=== PATIENT | female | born 1995 | race Two or more races ===

== ENCOUNTER → 2024-10-14 | Outpatient (CLI) | payer BC, SELFPAY ==
--- NOTE | 2024-10-14 09:30 | XR_ITS ---
Examination: MRI brain without intravenous contrast. Date and time of exam: October 14, 2024 0947 hours INDICATIONS: Headaches head pressure beginning 10 years ago Technique: Multiple axial and sagittal images of the brain obtained. Siemens high-resolution 1.5 Kelley short bore scanners utilized. Sagittal sections, T1-weighted, TR 500, TE 14, are performed. Axial sections proton-density and T2-weighted have been obtained. Inversion recovery axial images, TR 9, 260, TE 111, TI 2500. Diffusion weighted images, axial sections, TR 4800, TE 128, B value 1000 Axial sections, ADC map, TR 4800, TE 128 Findings: Enlargement of the sella turcica is not present. The optic chiasm and infundibular are not remarkable. Prepontine and interpeduncular cisterns are not enlarged. There is no localized enlargement of the medulla or cintia. Fourth ventricle and cerebellar tonsils appear normal in position. No subacute area of hemorrhage density is seen. Mass in the cerebellopontine angle region is not evident. Globes symmetrical. Orbital musculature including medial lateral rectus muscles do not exhibit abnormality. Diffusion-weighted images demonstrate no focus of restricted diffusion. Increased white matter signal suspicious for punctate focus increased signal in the right temporal white matter FLAIR image 9 Mass effect upon the ventricular system is not identified. Impression: Negative for acute hemorrhage mass effect or midline shift. Suspicious for single punctate focus of increased signal in the right temporal white matter, FLAIR image 9, clinical correlation as to early demyelinating disease is recommended
--- NOTE | 2024-10-14 09:30 | XR_ITS ---
EXAMINATION: MR venogram without contrast TECHNIQUE: MR venous angiographic images without intravenous contrast Date and time: October 14, 2024 10 0 6:00 AM INDICATIONS: Dizziness had pressure beginning 10 years ago. FINDINGS: Technique is limited Sagittal sinus and draining frontal parietal veins noted Straight sinus and internal cerebral veins identified Transverse sinuses and jugular veins also fill No luminal thrombus depicted IMPRESSION: This is a limited study partly secondary to patient motion No venous thrombus is noted
== END | disposition home or self-care (01) ==
LOC: SMRI 09:00
PROVIDERS: Referring Provider Psychiatry & Neurology Neurology; Visit Provider Psychiatry & Neurology Neurology
DX: R51.9 Headache, unspecified (principal)
CPT/HCPCS: 70546; 70548; 70549; 70551

== ENCOUNTER 2025-04-10 14:21 | Outpatient (AMB) | payer MEDICAID, SELFPAY ==
--- NOTE | 2025-04-10 14:29 | AMB.OBINITIA ---
Vital Signs 04/10/25 14:41 Height 1.68 m Height Method Stated Weight 72.178 kg Weight Measurement Method Standing Scale BMI 25.7 BP 123/83 Blood Pressure Source Automatic Cuff Blood Pressure Location Left Upper Arm Position Sitting Respiration 16 Pulse 78 Pulse Source Monitor Temp 97.2 F Temp Source Oral Pulse Oximetry (%) 98 Oxygen Delivery Method Room Air Allergies/Home Meds Allergies & Medications Allergies NKA* Allergy (Uncoded 04/10/25 14:42) Medication Reconciliation PNV CMB#95/FERROUS FUMARATE/FA ( MULTIVITAMINS TABLET) 1 tab PO DAILY ##0 03/30/13 [History Confirmed 04/10/25] Intake Visit Data Collection New Patient or Established: Established Patient (seen at [facility] within 3 years) Reason for Visit:: TRANSFER INITIAL CARE Seen by Clinical Staff ONLY (RN/MA): No Supervisor Blueprinting And Photocopy Required: No Do You Feel Safe at Home: Yes Authorities Contacted: N/A PCP or OBGYN visit in last 3 months: Yes Hx Now: Yes Are you currently on any form of Control: No Last menstrual period: 08/22/24 Pain Present Currently: No Pain Scale Used: Stover-Adams/Numerical Pain scale:: 0 Smoking Status Smoking Status: Never smoker Immunizations Flu Vaccine in the Last 12 Months: No Flu Vaccine Exclusion Criteria: Refused by Patient Questionnaires Covid-19 Vaccine Questionnaire Has patient been vacinated for Covid-19 Have you been vacinated for Covid-19: No PHQ-9 PHQ-2 Over the last 2 weeks, how often have you been bothered by any of the following problems? 1. Little interest or pleasure in doing things: not at all 2. Feeling down, depressed, or hopeless: not at all Total score: 0 PHQ-9 3. Trouble falling or staying asleep, or sleeping too much: Not at all 4. Feeling tired or having little energy: Not at all 5. Poor appetite or overeating: Not at all 6. Feeling bad about yourself - or that you are a failure or have let yourself or your family down: Not at all 7. Trouble concentrating on things, such as reading the newspaper or watching television: Not at all 8. Moving or speaking so slowly that other people could have noticed? - Or the opposite - being so fidgety or restless that you have been moving around a lot more than usual: not at all 9. Thoughts that you would be better off or of hurting yourself in some way: Not at all Total score: 0 Source: Developed by Drs. Jacob Garcia, Aline Holloway, Rui Kaufman and colleagues, with an educational slade from [employer]. Depression screen completed yes Social History Living Situation History Marital Status: Lives With: Family Housing: House Tobacco History Smoking Status: Never smoker Second Hand Smoke Exposure: No Alcohol History Alcohol Intake: Never Domestic Abuse History Do You Feel Safe at Home: Yes OB Initial Visit Menstrual History Menstrual reliability: definite Flow: normal Menstrual regularity: regular Monthly: Yes Age at menarche: 10 On control pills at conception: No Associated symptoms (LMP): Denies amenorrhea, nausea, vomiting, fatigue, breast tenderness, urinary frequency, irritability, bloating or other OB History : 3 Para: 2 # of Living Children: 2 Delivery History 1st : Child's name: CONNIE date: 04/28/13 sex: female Gestational age at delivery (weeks): 40 Delivery type: vaginal Delivery complications: NONE History of depression before or after : No 2nd : Child's name: NOY date: 11/16/16 sex: female Gestational age at delivery (weeks): 41 Delivery type: Delivery complications: NONE History of depression before or after : No Infection History & Risk Evaluation Patient or partner has history of Genital Herpes: Yes Genetic Screening & History Genetic Screening/Teratology Counseling - Includes patient, baby's father, or anyone in either family with: 1. Patient's age 35 years or older as of estimated date of delivery: No 2. Thalassemia (Telugu, Ethiopian, Mediterranean, or Background); MCV less than 80: No 3. Neural Tube Defect (Meningomyelocele, Spina Bifida, or Anencephaly): No 4. Congenital Heart Defect: No 5. Down Syndrome: No 6. Nick-Sachs (Ashkenazi Buddhist, Cajun, [place] Cook Islander): No 7. Jailyn Disease (Ashkenazi Buddhist): No 8. Familial Dysautonomia (Ashkenazi Buddhist): No 9. Sickle Cell Disease or Trait (): No 10. Hemophilia or other blood disorders: No 11. Muscular Dystrophy: No 12. Cystic Fibrosis: No 13. Dauphin's Chorea: No 14. Mental Retardation/Autism: No 15. Other inherited genetic or chromosomal disorder: No 16. Maternal Metabolic Disorder (EG,TYPE 1 Diabetes, PKU): No 17. Patient or baby's father had a child with defects not listed above: No 18. Recurrent loss or a stillbirth: No 19. Medications (including supplements, vitamins, herbs or otc drugs)/illicit/recreational drugs/alcohol since last menstrual period: No 20. Any other: No Infection History 1. Live with someone with TB or exposed to TB: No 2. Rash or viral illness since last menstrual period: No 3. Hepatitis B,C: No Other (see comments) Source: [employer] Review of Systems Constitutional Constitutional: Denies fatigue Gastrointestinal Gastrointestinal: Denies bloating, Denies nausea and Denies vomiting Genitourinary Genitourinary: Denies amenorrhea and Denies urinary frequency Psychiatric Psychiatric: Denies irritability Endocrine Endocrine: Denies fatigue Office Procedures [facility] LOC & Office Proc's Nursing/Assessment Patient Status: Established Patient OB Clinic Nursing Assessment: Medication Reconciliation, Update PMH in EMR and Vital Signs OB Clinic Coordination of Care: Complex Care and Chronic Disease 1-5, Consent,records obtained, informed consent, Education Simp Pt/Fam, 1 Ins Authorization, Lab and Imaging orders, Results/Orders obtained and Staff clarify orders Special Needs: Heart tones Established Patient Charge Established Patient Point Assignment: 150 Established Patient Point Charge: EP Level 4 (120-155) Assessment & Plan Diagnosis / Problem List (1) Maternal care for low transverse scar from previous delivery: Status: Acute (2) Supervision of high risk , unspecified, first trimester: Status: Acute
[2025-04-10 14:41] VITALS: BP 123/83; PULSE 78; RESP 16; TEMP 36.2; O2SAT 98; BMI 25.7
== END 2025-04-10 15:00 | disposition home or self-care (01) ==
LOC: HODSOBC 14:21
PROVIDERS: Supervising Provider Obstetrics & Gynecology; Visit Provider Obstetrics & Gynecology
DX: O09.291 Supervision of pregnancy with other poor reproductive or obstetric history, first trimester (principal); O34.211 Maternal care for low transverse scar from previous cesarean delivery; Z3A.00 Weeks of gestation of pregnancy not specified
CPT/HCPCS: 99214; G0463

== ENCOUNTER 2025-04-27 11:00 | Outpatient (AMB) | payer MEDICAID, SELFPAY ==
[2025-04-27 11:14] VITALS: BP 126/86; PULSE 90; RESP 18; TEMP 36.4; O2SAT 97; BMI 25.6
--- NOTE | 2025-04-27 11:14 | OBCLNT_ITS ---
Vital Signs 04/27/25 11:14 Height 1.68 m Height Method Stated Weight 72.291 kg Weight Measurement Method Standing Scale BMI 25.6 BP 126/86 H Blood Pressure Source Automatic Cuff Blood Pressure Location Right Upper Arm Position Sitting Respiration 18 Pulse 90 Pulse Source Monitor Temp 97.6 F Temp Source Temporal Artery Scan Pulse Oximetry (%) 97 Oxygen Delivery Method Room Air Allergies/Home Meds Allergies & Medications Allergies NKA* Allergy (Uncoded 04/27/25 11:15) Medication Reconciliation PNV CMB#95/FERROUS FUMARATE/FA ( MULTIVITAMINS TABLET) 1 tab PO DAILY ##0 03/30/13 [History Confirmed 04/27/25] Immunizations Immunizations Flu Vaccine in the Last 12 Months: No Flu Vaccine Exclusion Criteria: No Exclusion Criteria Care OB Visit Log OB Flowsheet Initial Weight: Not Recorded Date -?-?-?-?-?-?-?-?-?-?-?-?- EGA Weight BP Alb Glu CTX Pres Fundal ht FHR Mov Dilation Station Effacement Hx Notes Visit Note 04/10/25 -?-?-?-?-?-?-?-?-?-?-?-?- 33w 0d 72.178 kg 123/83 occasional cephalic 34 145 active - Jeni Louis is a 29-year-old female, 3 para 2, presenting for transfer of care at 33 weeks gestation. - She has a history of one previous C-se ction and is currently with a male fetus. - Patient has a complex left ovarian mas s, possibly dermoid, measuring 7.1 by 4.7 by 6.5 centimeters. - She reports that everything is going w ell with her . - Patient was previously under the care of [facility] and is now transferring care. - She has had M ultrasounds showing ap propriate growth with no structural abnormalities noted, though anatomy was limited secondary to maternal body habitus. - Patient denies any current concerns or significant issues. - She has not yet decided on a name for the baby. - Patient confirms she has vitamins and does not need any refills. - Schedule repeat at 39 weeks - Remove ovarian dermoid cyst (7.1 x 4.7 x 6.5 cm) during and send to pathology - Follow-up appointment in 2 weeks - Perform Group B Strep vaginal culture at next visit - Weekly appointments after the 2-week f ollow-up 04/27/25 -?-?-?-?-?-?-?-?-?-?-?-?- 35w 3d 72.291 kg 126/86 occasional cephalic 36 140 active - Jeni Louis is a 3 para 2 female at 35 weeks and 3 days gestation presenting for routine visit with history of two previous sections and scheduled repeat section at 39 weeks. - She reports pain or pressure in the up per abdomen/rib area. - Pain occurs when sitting - Attributes discomfort to baby pressi ng against ribs as baby fills up available space - She reports the baby is always active with normal movement. - She denies cramping, bleeding, or othe r concerning symptoms. - Previous ovarian cyst is not currently acting up. - Scheduled repeat section on May 22 at 7:30 AM with check-in at 5:30 AM - Planned removal of left ovarian cyst d uring delivery, with specimen to be sent to pathology for analysis - Group B Streptococcus culture performe d - Pre-operative appointment to be schedu led upon physician's return from leave - Patient instructed to present to hospi avery if experiencing contractions, leaking, or other concerning symptoms - Recommend sleeping on side to alleviat e rib pressure from positioning JOSTIN Calculator Estimated Delivery Date Method Current WG Current Estimate 05/29/25 LMP (Certain) 35w 3d Other Estimates 05/26/25 Ultrasound #1 35w 6d Office Procedures [facility] LOC & Office Proc's Nursing/Assessment Patient Status: Established Patient OB Clinic Nursing Assessment: Medication Reconciliation, Update PMH in EMR and Vital Signs OB Clinic Coordination of Care: Complex Care and Chronic Disease 1-5, Education Complex Pt/Fam, Consent,records obtained, informed consent, Lab and Imaging orders, Results/Orders obtained and Staff clarify orders Special Needs: Heart tones Miscellaneous Interventions: Culture Specimen Collection Established Patient Charge Established Patient Point Assignment: 155 Established Patient Point Charge: EP Level 4 (120-155) Assessment & Plan Diagnosis / Problem List (1) Maternal care for low transverse scar from previous delivery: Status: Acute Plan Problem List - at 35 weeks 3 days gestation - History of section - Left ovarian cyst - Rib pain in Assessment 35-week 3-day gestation in a 29-year-old with history of two prior sections and complex left ovarian cyst. Patient reports rib pain/pressure from positioning but denies contractions, bleeding, or other concerning symptoms. heart rate is normal at 142-143 bpm with reported normal activity. GBS culture obtained. Planned repeat delivery scheduled for 39 weeks with concurrent cyst removal and pathological analysis. Plan - Scheduled repeat section on May 22 at 7:30 AM with check-in at 5:30 AM - Planned removal of left ovarian cyst during delivery, with specimen to be sent to pathology for analysis - Group B Streptococcus culture performed - Pre-operative appointment to be scheduled upon physician's return from leave - Patient instructed to present to hospital if experiencing contractions, leaking, or other concerning symptoms - Recommend sleeping on side to alleviate rib pressure from positioning 1. Progress Reviewed gestational age at 35 weeks 3 days, growth, and heart rate of 142-143 bpm which is normal. Planned frequent visits with scheduled delivery on May 22 at 7:30 AM. 2. Instructed patient to monitor movements and report decreases immediately. Patient reports baby is always active. 3. Testing Group B Strep culture was performed during this visit as routine third-trimester screening. 4. Preeclampsia Precaution Educated on preeclampsia signs: severe headache, vision changes, right upper quadrant pain, sudden swelling. Advised urgent reporting of symptoms and discussed blood pressure monitoring if high risk. 5. Labor Precautions Reviewed labor signs: regular contractions, pelvic pressure, back pain, bleeding, or fluid leakage. Instructed to seek immediate care for these symptoms and to come to hospital for any contractions, leaking, or problems. 6. Lifestyle and Delivery Preparation Discussed scheduled delivery plan including check-in at 5:30 AM, pre- operative preparation, and surgical plan to deliver baby first, then remove ovarian cyst. Advised positioning on side to relieve rib pressure from baby. 7. Psychosocial Support Patient reports feeling good with no concerning symptoms. Emotional well-being appears stable.
== END 2025-04-27 11:26 | disposition home or self-care (01) ==
LOC: HODSOBC 11:00
PROVIDERS: Supervising Provider Obstetrics & Gynecology; Visit Provider Obstetrics & Gynecology
DX: O09.293 Supervision of pregnancy with other poor reproductive or obstetric history, third trimester (principal); O34.211 Maternal care for low transverse scar from previous cesarean delivery; O09.893 Supervision of other high risk pregnancies, third trimester; O34.83 Maternal care for other abnormalities of pelvic organs, third trimester; N83.202 Unspecified ovarian cyst, left side; O99.891 Other specified diseases and conditions complicating pregnancy; R07.89 Other chest pain; Z36.85 Encounter for antenatal screening for Streptococcus B; Z3A.35 35 weeks gestation of pregnancy
CPT/HCPCS: 99214; G0463